=== PATIENT | female | born 1935 | race Caucasian/White ===

== ENCOUNTER → 2016-10-17 | Outpatient (CLI) | payer MEDICARE, BC ==
--- NOTE | 2016-10-17 13:56 | XR ---
EXAMINATION TYPE: XR chest 2V DATE OF EXAM: 10/17/2016 COMPARISON: NONE HISTORY: Shortness of breath after starting a new blood pressure medication a few months ago. TECHNIQUE: Frontal and lateral views of the chest are obtained. FINDINGS: There is no focal air space opacity, pleural effusion, or pneumothorax seen. There is pulm onary hyperinflation and slight flattening of the diaphragms suggesting pulmonary emphysema. The car diac silhouette size is within normal limits. The osseous structures are intact. Mild degenerative changes of the thoracic spine. IMPRESSION: 1. No acute cardiopulmonary process. 2. Radiographic sequela of COPD.
== END | disposition home or self-care (01) ==
LOC: RADXRMAIN 13:28
PROVIDERS: ATTEND Internal Medicine
DX: J44.9 Chronic obstructive pulmonary disease, unspecified (principal)
CPT/HCPCS: 71020

== ENCOUNTER 2018-05-19 12:00 | Day surgery (SDC) | payer BC, MEDICARE ==
[2018-05-17 11:27] VITALS: BMI 21.7
[~2018-05-19 12:00] MED LIST: LIDOCAINE 1% 20 ML VIAL (10MG/ML) FOR IV START INTRADERMA PRN
[2018-05-19] MEDS: LACTATED RINGERS 1,000 ML IV SCH ×2 (12:46→15:14)
[2018-05-19 12:51] VITALS: RESP 16; TEMP 97.1
[2018-05-19] MEDS ORDERED: PROPOFOL 10 MG/ML 20 ML VIAL IV ONE (15:15)
--- NOTE | 2018-05-19 15:59 | P.PCN ---
Date of Procedure: 05/19/18 Description of Procedure: BRIEF HISTORY: The patient is an 82-year-old female who presents for outpatient colonoscopy. The patient reports a remote history of colonoscopy approximately 15 years ago which she reports was normal. She recently underwent screening with cologuard which was positive and presents for further evaluation. She denies any change in bowel habits, hematochezia, melena, diarrhea or constipation. She denies any family history of colon cancer. PROCEDURE PERFORMED: Colonoscopy with polypectomy. PREOPERATIVE DIAGNOSIS: Positive stool testing, Positive cologard. ESTIMATED BLOOD LOSS: Minimal. IV sedation per Anesthesia. PROCEDURE: After informed consent was obtained, the patient, was brought into the endoscopy unit. IV sedation was administered by Anesthesia under continuous monitoring. Digital rectal examination was normal. Initially the Olympus CF-190 flexible video colonoscope was then inserted in the rectum, gradually advanced into the cecum without any difficulty. Careful examination was performed as the scope was gradually being withdrawn. Ileocecal valve and the appendiceal orifice were visualized and appeared normal. Prep was excellent. Mucosa of the cecum, ascending colon, transverse colon, descending colon, sigmoid colon, and rectum appeared normal. Diminutive transverse sessile colonic polyp measuring 3 mm removed with cold forcep polypectomy. Diminutive descending sessile colonic polyp measuring 3 mm removed with cold forcep polypectomy. 2 descending colonic polyps measuring 6 and 7 mm removed with cold snare polypectomy. Diminutive sessile sigmoid colon polyp removed with cold forcep polypectomy. Retroflexion was performed in the rectum and no lesions were seen, internal hemorrhoids noted. The patient tolerated the procedure well. IMPRESSION: 1. Cold snare polypectomy of 2 descending colon polyps. 2. Cold forcep polypectomy of colonic polyps in the transverse, descending and sigmoid colon. 3. Internal hemorrhoids. RECOMMENDATIONS: Findings of this examination were discussed with the patient. Okay for diet. Await pathology from polypectomies. Colonoscopy in 3 years pending pathology from polypectomies in patient's health status at that time.
[2018-05-19 16:10] VITALS: BP 119/66; PULSE 72
== END 2018-05-19 16:51 | disposition home or self-care (01) ==
LOC: ORWHC2ENDO 12:00
PROVIDERS: ATTEND Internal Medicine
DX: Z12.11 Encounter for screening for malignant neoplasm of colon (principal); D12.3 Benign neoplasm of transverse colon; D12.4 Benign neoplasm of descending colon; D12.5 Benign neoplasm of sigmoid colon; K64.8 Other hemorrhoids; Z88.8 Allergy status to other drugs, medicaments and biological substances; I10 Essential (primary) hypertension; Z79.899 Other long term (current) drug therapy
CPT/HCPCS: 88305; 45380; 45385; J2704

== ENCOUNTER → 2022-05-28 | Outpatient (CLI) | payer MEDICARE ==
--- NOTE | 2022-05-28 15:13 | NM ---
EXAMINATION TYPE: NM bone scan whole body DATE OF EXAM: 05/28/2022 COMPARISON: NONE HISTORY: Metastatic disease Delayed whole-body scanning was performed following the injection of 23.3 mCi Tc 99m MDP. Images wer e acquired 3 hours post injection. FINDINGS: Multiple foci of radiotracer within the proximal bilateral femurs the distal right femur. This includ es intertrochanteric regions and femoral neck regions. Findings are suspicious for metastatic disease . Increased uptake is within the sacrum and pelvic osseous structures compatible with metastatic diseas e. There is increased uptake in the region of L3. Metastatic disease and posttraumatic change being cons idered. Multiple scattered bilateral rib areas of uptake are present suspicious for metastatic disease. Scattered suspicious changes within the calvarium are evident suggesting underlying metastasis. IMPRESSION: 1. Multiple metastatic lesions including proximal bilateral femurs, within the pelvis, L3 region, mul tiple bilateral ribs, and calvarium.
== END | disposition home or self-care (01) ==
LOC: RADNMMAIN 10:05
PROVIDERS: ATTEND Internal Medicine
DX: C79.51 Secondary malignant neoplasm of bone (principal)
CPT/HCPCS: 78306; A9503